=== PATIENT | male | born 1990 | race African-American/Black ===

== ENCOUNTER 2024-02-21 06:33 | Emergency (ER) | payer BC, SELFPAY ==
[2024-02-21] VITALS (38 sets, daily range): BP systolic 110–172; BP diastolic 51–93; PULSE 59–102; RESP 15–38; TEMP 37.5–39.2; O2SAT 95
--- NOTE | 2024-02-21 06:30 | RT.EKG_ITS ---
APPROVED REPORT Exam: Resting ECG Reason for Exam: rapid heart rate, chest pain' Patient Location: E HR:96 bpm ECG Measurements Heart Rate 96 AXIS NM 155 P 69 QRSd 97 QRS -3 QT 334 T 61 QTc 423 Conclusion Sinus rhythm...normal P axis, V-rate 60- [address] segment or T wave abnormalities to suggest occlusive IL
--- NOTE | 2024-02-21 07:10 | W.ED.GENAD ---
Discharge Plan Disposition Patient Disposition: Home Discharge Details Clinical Impression: Chest pain, unspecified Primary Care Provider: Colleen,Local ED Provider: Larry Lau Home Meds and New Rx's Prescriptions: Continued losartan-hydrochlorothiazide [Hyzaar] 50-12.5 mg tablet 1 tab PO DAILY pantoprazole 40 mg tablet,delayed release (DR/EC) 40 mg PO DAILY cyclobenzaprine 5 mg tablet 5 mg PO TID PRN Discharge Instructions Additional Instructions: You are seen in the emergency department for your fever and chest pain. Your blood work showed no sign of damage to your heart and no sign of a blood clot in your lungs. As we discussed please return to the emergency department if you do not urinate at least once every 8 hours while awake if you develop worsening fevers chest pain associated with any sweating or if you have any other concerns. For your pain please take medications as follows: 1. Take acetaminophen (Tylenol), 1,000 mg (two 500 mg tabs) every 6 hours [2. Take ibuprofen (Advil), 400 mg every 6 hours.] HPI General Date/Time Provider Initiated Documentation: 02/21/24 06:48. HPI Narrative: MDM This is an overall very well-appearing febrile but not tachycardic 33-year-old obese male with fevers chest pain shortness of breath concerning for the possibility of viral URI versus ACS versus PE. No pain out of proportion to suggest necrotizing soft tissue infection. I considered sepsis however the patient is quite well-appearing so I did not order blood cultures check a lactate nor treat empirically with IV antibiotics. No tearing quality to suggest dissection. Will plan on obtaining a chest x-ray to assess for pneumonia. No vomiting to suggest increased risk for esophageal rupture. Soft nontender abdomen so my suspicion is low for pancreatitis. Not hypotensive nor dialysis patient so doubt tamponade. No trauma to the chest and equal breath sounds so doubt pneumothorax. I considered Lyme carditis however the patient does not have any history of any recent tick bites and his OH interval is not prolonged. In the absence of dysuria and frequency I did not send a urinalysis. 7:30 AM Mildly low calcium level though patient has not been vomiting so does not administer any calcium losses. Otherwise reassuring comprehensive metabolic panel. CBC shows leukopenia. No anemia. No thrombocytopenia. Mild lymphopenia. Negative reassuring troponin. Given duration of time since symptoms will cancel second troponin. 8:24 AM I met with the patient. He felt improved. His fever had resolved with fluids. His x-ray was read was pending. I advised him that he most likely had some type of a viral syndrome given his leukopenia and lymphopenia. No B symptoms to suggest malignancy. No pancytopenia. No nuchal rigidity to suggest meningitis so I did not feel he required a lumbar puncture. I advised patient to return to the emergency department if he developed any chest pain that worsened or is associated with diaphoresis pending above tolerate p.o. any nausea or vomiting or any other concerns. He understood his return indications and was discharged with empiric trial of expectant outpatient management. 10:13 AM X-ray read as negative. Patient discharged with empiric trial of expectant outpatient management. Chronic conditions affecting the care of the patient: Elevated BMI History obtained from an outside historian: N/A External record review: N/A Diagnostic interpretations performed by me: Per my independent interpretation chest x-ray shows: Per my independent interpretation EKG shows: Narrow complex normal sinus rhythm at a rate of 96. Normal axis. Intervals within normal limits. No ST segment abnormalities. T wave flattening in aVL. No T wave. No priors. No acute injury pattern. ]Medications: Acetaminophen Social determinants of health affecting disposition: N/A Management discussed with: N/A Treatment/interventions considered: N/A Response to therapies provided: Improved symptoms in the ED HPI This is a 63-year-old male with an elevated BMI and history of hypertension arrived to the emergency department via private vehicle in the setting of fevers chills chest pain shortness of breath. Patient is originally from [place] and is working in [place] at the [employer]. He noted that 2 nights ago he developed fever. He says he has a central chest pain. It does not radiate. It is not positional nor pleuritic. He has noted new dyspnea on exertion. He has a history of positional sleep apnea. He said no cough nor rhinorrhea. No sick contacts. No history of DVTs or PEs. He denies nausea vomiting abdominal pain. He occasionally drinks ethanol but denies routine tobacco and illicits. He did note that his urine was green several days ago. He has not had any dysuria nor frequency. He denies any recent tick bites. Exam General: Well-appearing in no acute distress speaking in complete sentences. Head: Normocephalic, atraumatic. Eye: Extraocular eye movements intact. No conjunctival injection. No scleral icterus. Ear, nose, mouth, throat: Grossly normal inspection. Normal voice, handling secretions normally. Neck: Trachea midline. Cardiovascular: Well-perfused distal extremities. Regular rate and rhythm Respiratory: Nonlabored respiration. Clear lungs bilaterally Gastrointestinal: Nondistended abdomen. Soft nontender. Musculoskeletal: No edema. Moving all 4 extremities spontaneously. Skin: Normal for age and race, grossly normal temperature and turgor. No acute rash. Neurologic: Alert and appropriate, no apparent acute deficits. Psychiatric: Mood and manner are appropriate. Grooming and personal hygiene are appropriate. Related Data Home Medications Medication Instructions Recorded Confirmed cyclobenzaprine 5 mg tablet 5 mg PO TID PRN 02/21/24 02/21/24 losartan 50 mg-hydrochlorothiazide 1 tab PO DAILY 02/21/24 02/21/24 12.5 mg tablet (Hyzaar) pantoprazole 40 mg tablet,delayed 40 mg PO DAILY 02/21/24 02/21/24 release Allergies Allergy/AdvReac Type Severity Reaction Status Date / Time No Known Allergies Allergy Unverified 02/21/24 06:57 General Stated Complaint: RespSymp JAX: 2 Course Vital Signs Vital signs: Vital Signs Temperature 39.2 C H 02/21/24 06:48 Pulse 92 H 02/21/24 06:48 Respiratory Rate 18 02/21/24 06:48 Blood Pressure 155/74 H 02/21/24 06:48 Pulse Oximetry 95 02/21/24 06:48 Temperature 39.2 C H 02/21/24 06:51 Temperature Source Temporal Artery Scan 02/21/24 06:51 Pulse 92 H 02/21/24 06:51 Respiratory Rate 16 02/21/24 06:51 Respiratory Effort Normal, Non-Labored, Short of Breath 02/21/24 06:52 Respiratory Depth Normal 02/21/24 06:52 Blood Pressure 155/74 H 02/21/24 06:48 Blood Pressure Position Supine 02/21/24 06:48 Pulse Oximetry 95 02/21/24 06:51 Oxygen Delivery Method Room Air 02/21/24 06:51 Oxygen Flow Rate 0 02/21/24 06:48 Pain Level 6 02/21/24 06:51 Medical Decision Making Quality:SDOH Health Related Social Needs: No Data to Display PFSH All Active Problems (Updated 02/21/24 @ 08:25 by Larry Lau MD) Chest pain, unspecified (Acute) Social History Smoking/Tobacco Use Status: Never Smoking risk assessment performed?: Yes Alcohol Intake: current Alcohol Intake frequency: holidays/special occasions only Drug use: Never Substance use type: does not use Housing: apartment Do you feel safe at home: Yes Do you feel safe in your relationship?: Yes
[2024-02-21] MEDS: Acetaminophen 500 MG TAB 1000 MG PO (07:12)
[2024-02-21 07:14] LABS: Abs Immature Grans 0.01 10^3/uL (0.0-0.06); Absolute Basophil Count 0.01 10^3/uL (0.0-0.2); Absolute Lymphocyte Count 0.96 10^3/uL (1.2-3.4); Absolute Monocyte Count 0.56 10^3/uL (0.1-0.8); Absolute Neutrophil Count 2.17 10^3/uL (1.2-6.7); Basophils % 0.3 %; Eosinophils % 2.6 %; HCT 43.2 % (40.0-50.0); HGB 14.7 g/dL (13.5-17.5); Immature Grans % 0.3 %; Lymphocytes % 25.2 %; MCH 29.9 pg (27.0-33.0); MCV 88 fL (80-95); MPV 10.5 fL (8.0-11.0); Monocytes % 14.7 %; Neutrophils % 56.9 %; Platelet Count 198 10^3/uL (130-400); RBC 4.92 10^6/uL (4.36-5.78); RDW 13.2 % (11.8-14.1); RDW-SD 43.3 fL; WBC 3.81 10^3/uL (4.4-10.8)
--- NOTE | 2024-02-21 07:30 | DI.RAD_ITS ---
Exam(s) XR CHEST 2V PA LATERAL EXAM: XR CHEST 2V PA LATERAL CLINICAL HISTORY: Chest pain TECHNIQUE: 2D digital imaging was performed of the chest. Two images were obtained. PA and lateral views were obtained. COMPARISON: No exams were available for comparison FINDINGS: MEDIASTINUM: Normal. HEART: Normal. PULMONARY VASCULATURE: Normal. LUNGS: Clear. PLEURAL SPACE: No pleural effusion or pneumothorax. BONE:Within normal limits for the patient's age. OTHER FINDINGS:Normal. IMPRESSION: No acute pulmonary findings. DATA REPOSITORY: RADIATION DOSE DELIVERED:
[2024-02-21 07:31] LABS: ALT 41 U/L (16-63); AST 31 U/L (15-37); Albumin 3.8 g/dL (3.4-5.0); Alkaline Phosphatase 62 U/L (46-116); Anion Gap 7.8 mmol/L (3-11); BUN 16 mg/dL (7-18); Bilirubin, Total 0.6 mg/dL (0.2-1.0); CO2 27.2 mmol/L (21.0-32.0); CREATININE 1.2 mg/dL (0.70-1.30); Calcium 8.3 mg/dL (8.5-10.1); Chloride 102 mmol/L (98-107); Estimated GFR 81.38 (mL/min/1.73m2); Glucose 105 mg/dL (74-106); Potassium 3.7 mmol/L (3.5-5.1); Sodium 137 mmol/L (136-145); Total Protein 7.8 g/dL (6.4-8.2); Troponin I < 50 ng/L (< or =60)
[2024-02-21 07:52] LABS: COVID-19 PCR Negative (Negative); Influenza A PCR Negative (Negative); Influenza B PCR Negative (Negative); RSV PCR Negative (Negative)
[2024-02-21 07:53] LABS: Source Nasopharynx
[2024-02-21 07:58] LABS: D-Dimer 959 ng/mlFEU (<500)
--- NOTE | 2024-02-21 10:11 | DI.VRAD_ITS ---
PROCEDURE INFORMATION: Exam: XR Chest Exam date and time: 02/21/2024 8:12 AM Age: 33 years old Clinical indication: Pain; Other: Cp TECHNIQUE: Imaging protocol: Radiologic exam of the chest. Views: 2 views. COMPARISON: No relevant prior studies available. FINDINGS: Lungs: Unremarkable. No consolidation. Pleural spaces: Unremarkable. No pleural effusion. No pneumothorax. Heart/Mediastinum: Unremarkable. No cardiomegaly. Bones/joints: Unremarkable. IMPRESSION: No acute findings. Dictated and Authenticated by: Sukumar Sagastume MD. Ordering:ELDA Juarez MD
== END 2024-02-21 10:24 | disposition home or self-care (01) ==
PROVIDERS: Emergency Provider Emergency Medicine
DX: R07.9 Chest pain, unspecified (principal); R50.9 Fever, unspecified; E66.9 Obesity, unspecified
CPT/HCPCS: 36415; 80053; 87637; 93005; 99283; 71046; 84484; 85025; 85379; 93010